=== PATIENT | female | born 1965 | race Caucasian/White ===

== ENCOUNTER 2020-12-29 09:38 | Emergency (ER) | payer BC, SELFPAY ==
--- NOTE | ~2020-12-29 | XR_ITS ---
EXAMINATION: XR CHEST CLINICAL INFORMATION: Chest x-ray, SOB COMPARISON: Chest x-ray 12/29/2020 TECHNIQUE: 2 views of the chest were obtained. FINDINGS: The lungs are hypoexpanded without any acute pneumonic process. There is focal air collection in the left lower lobe retrocardiac area likely hiatal hernia. There is underlying left lower lobe atelectasis. The heart size and pulmonary vascularity is normal. No gross bony abnormality seen. XR/XR chest 2V IMPRESSION: Large retrocardiac hiatal hernia with underlying atelectasis. Rest of the lungs are clear. No major change from 12/29/2020
--- NOTE | ~2020-12-29 | XR_ITS ---
EXAMINATION: CR CHEST CLINICAL INFORMATION: Shortness of breath. COMPARISON: None TECHNIQUE: AP upright portable view of the chest was obtained. FINDINGS: The cardiac mediastinal silhouette is enlarged. There is abnormal multiloculated lucency seen in the retrocardiac left lung base. Findings may be due to a large retrocardiac hiatal hernia with gas-filled viscus structures in the mediastinum. Less likely, findings may represent cavitary lesions in the left lung base. The right lung is fully expanded and clear. No significant effusion or pneumothorax is seen. Bony structures are unremarkable. XR/XR chest 1V IMPRESSION: Multiloculated lucencies are seen in the retrocardiac left lung base, most likely related to a large hernia with gas-filled viscus structures into the mediastinum. A PA and lateral view of the chest would be helpful to further assess these findings and exclude an underlying lung parenchymal process.
[2020-12-29 09:43] VITALS: BP 170/79; PULSE 63; RESP 18; TEMP 35.9; O2SAT 99; BMI 33.6
--- NOTE | 2020-12-29 10:02 | ED_ITS ---
HPI - General Adult General Chief complaint: Weakness Stated complaint: ABNORMAL LABS Time Seen by Provider: 12/29/20 09:52 Source: patient and family Mode of arrival: ambulatory Limitations: no limitations History of Present Illness HPI narrative: 55 y/o female with history of COVID in Jul 2020, anemia requiring transfusion about 3 years ago presents to the ER feeling fatigued and SOB, similar to how she felt when she got the transfusion. She reports she was admitted at [facility] at the time and her hemoglobin was around 5. She was admitted, transfused 2 or 3 units of blood and no cause was identified. She rep ortedly had a negative EGD and colonoscopy. She also reports seeing a kidney specialist at that time for a blood clot in the kidney and ?infarction. She has had no medical problems since then and has not required any blood transfusions since. She denies any abnormal kidney funciton. She reports over the last 4 weeks she has felt off. She is more easily fatigued, generally weak and dyspneic with exertion. She denies chest pain or dizziness. She denies any melena, BRBPR, hematuria or vaginal bleeding. She is not on any aspirin or blood thinners. Her noticed her coloring has been poor lately. They went to Urgent Care this morning who instructed them to come to the ER for further evalu ation. complaint: fatigue, JERNIGAN Onset (ago): week(s) (4) Location: chest Radiation: non-radiation Severity: moderate Pain Consistency: intermittent Relieving factors: rest Exacerbating factors: movement Associated symptoms: malaise and weakness Treatments prior to arrival: none Related Data Allergies Allergy/AdvReac Type Severity Reaction Status Date / Time Unable to Assess Allergy Unverified 12/29/20 09:53 Review of Systems Review of Systems: Constitutional: No Fever, No Chills ENT/Mouth: No sore throat, No Rhinorrhea, No Swallowing Difficulty Eyes: No Eye Pain, No Swelling, No Redness Cardiovascular: No Chest Pain, + SOB, No Orthopnea, No Edema Respiratory: No Cough, No Sputum, No Wheezing, + dyspnea Gastrointestinal: No Nausea, No Vomiting, No Diarrhea, No abdominal Pain, No Hematochezia, No Melena Genitourinary: No Dysuria, No Urinary Frequency, No Hematuria Musculoskeletal: No joint pain, No Myalgias Skin: No Skin Lesions, No rash Neuro: + Weakness, No Numbness, No Dizziness, No Headache Psych: No Anxiety/Panic, No Depression Heme/Lymph: No Bruising, No Lymphadenopathy Endocrine: No Polyuria, No Polydipsia PMFSH Past Medical History Attestation statement: The following information was validated with the patient. Medical History Anemia History of blood clots Surgical History History of hip replacement Social History Social History Advance Directives: No Advance Directives Information Provided: No Patient : No Physical Exam Vital Signs: Vital Signs: Last Vital Signs Temp 96.7 F L 12/29/20 09:43 Pulse 63 12/29/20 09:43 Resp 18 12/29/20 09:43 BP 170/79 H 12/29/20 09:43 Pulse Ox 99 12/29/20 09:43 Body Mass Index 33.6 Const: General: cooperative, healthy appearing, comfortable, no acute distress and well developed Orientation/consciousness: patient oriented x3 HENMT: Head: Yes normal to inspection, Yes normocephalic and Yes atraumatic Ears: hearing grossly normal bilaterally General nose exam: Normal external nose present Face and sinus: Yes normal facial exam Mouth: Normal oral and palatal mucosa present Teeth and gingiva: dentition normal Throat: Yes posterior oropharynx normal Eyes: Periorbital: periorbital findings normal Eyelids: Yes eyelids normal Sclerae: scleral abnormal (bilateral pallor) EOM: EOMs intact bilaterally Neck: Neck: Yes normal visual inspection and Yes no lymphadenopathy Chest: Chest palpation & inspection: normal inspection of the chest Resp: Effort & Inspection: normal respiratory effort and able to speak in complete sentences Auscultation: clear to auscultation bilaterally Cardio: Rate: regular rate Rhythm: regular rhythm Heart sounds: S1 normal heart sound present and S2 normal heart sound present GI: Inspection: Yes normal to inspection Palpation (GI): Soft to palpation Auscultation: normal bowel sounds Skin: General skin exam: no rashes or lesions noted and pallor Neuro: General: patient oriented x3, gait normal, tone normal and moves all extremities Extrem: General: Yes normal to inspection Psych: Appearance: grossly normal and well kempt Mental Status: mental status grossly normal Speech and movement: Normal speech and movement present Course Course Course Narrative: 55 y/o female with history of anemia requiring transfusion in the past who presents with generalized weakness, fatigue and JERNIGAN x4 weeks. Denies blood loss. No identifiable cause on previous anemic admission at [facility] ate a few years ago. Will try to get records. Will get CBC, retic count, LFTs to r/o hemolysis. Type and screen ordered. May require admission for symptomatic anemia. Reevaluation(s) Reevaluation #1: H/H 10.8/36. CXR with ?hiatal hernia. Will get 2 view. Can explain some JERNIGAN/SOB complaints but not fatigue. Lab workup is unremarkable. Reevaluation #2: 2 view CXR showing large hiatal hernia. Patient is advised on results and will follow up with her provider. She is no respiratory distress and is not hypoxic. She is not anemic to the point of transfusion. Her fatigue has been since her COVID diagnosis in July. 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 She has an appointment with her new PCP this March and will follow up with them. She is stable for discharge home with outpatient follow up. Advised on worrisome symptoms to prompt urgent reevaluation. Medical Decision Making Lab Data Result diagrams: 12/29/20 10:10 12/29/20 10:11 Labs: Lab Results 12/29/20 12/29/20 12/29/20 Range/Units 10:10 10:10 10:11 WBC 4.9 (4.8-10.8) X10*3/uL RBC 4.33 (4.20-5.50) X10*6/uL Hgb 10.8 L (12.0-16.0) g/dl Hct 36.4 L (37-47) % MCV 84.1 (80-98) fL MCH 24.9 L (27.0-33.0) pg MCHC 29.7 L (31.0-35.0) g/dl RDW 13.8 (11.0-16.0) % Plt Count 272 (160-400) X10*3/uL MPV 10.5 (9.4-12.3) fL Immature Gran % (Auto) 0.2 (0.0-0.4) % Neut % (Auto) 71.4 (45-73) % Lymph % (Auto) 17.7 L (20-40) % Mobile % (Auto) 8.4 (2-11) % Eos % (Auto) 2.1 (0-4) % Baso % (Auto) 0.2 (0-2) % Lymph # (Auto) 0.9 L (1.2-4.9) X10*3/uL Mobile # (Auto) 0.4 (0.1-1.2) X10*3/uL Eos # (Auto) 0.1 (0.0-0.4) X10*3/uL Baso # (Auto) 0.0 (0.0-0.2) X10*3/uL Abs Immat Gran (auto) 0.01 (0.00-0.03) X10*3/uL Absolute Neuts (auto) 3.5 (2.0-8.3) X10*3/uL Absolute Nucleated RBC 0.000 (0.0-0.012) X10*3/uL Nucleated RBC % (auto) 0.0 (0.0-0.2) /100WBC Absolute Retic 0.043 (0.026-0.095) X10*6/uL Percent Retic 1.0 (0.5-1.8) % Immature Retic Fraction 8.1 (3.0-15.9) % Retic Hgb Equivalent 22.8 L (30.0-35.0) pg PT 10.7 L (10.8-13.0) SEC INR 0.9 (0.9-1.1) APTT 38.5 H (24.1-38.0) SEC Hold Blue Top SEE NOTE Sodium (135-145) mmol/L Potassium (3.3-5.1) mmol/L Chloride (96-108) mmol/L Carbon Dioxide (22-29) mmol/L Anion Gap (12-20) BUN (9-16) mg/dL Creatinine (0.5-1.4) mg/dL Estim Creat Clear Calc Estimated GFR Random Glucose (60-115) mg/dL Calcium (8.4-10.2) mg/dL Magnesium (1.6-2.6) mg/dL Total Bilirubin (0.0-1.0) mg/dL Direct Bilirubin (0.0-0.5) mg/dL AST (5-31) U/L ALT (0-31) U/L Alkaline Phosphatase (39-117) U/L Troponin I High Sens < 3.5 (<3.5-17.0) ng/L Total Protein (6.5-8.0) g/dL Albumin (3.5-5.0) g/dL COVID-19 (EROS) (Negative) COVID-19 Clin Com 12/29/20 12/29/20 12/29/20 Range/Units 10:11 10:11 10:24 WBC (4.8-10.8) X10*3/uL RBC (4.20-5.50) X10*6/uL Hgb (12.0-16.0) g/dl Hct (37-47) % MCV (80-98) fL MCH (27.0-33.0) pg MCHC (31.0-35.0) g/dl RDW (11.0-16.0) % Plt Count (160-400) X10*3/uL MPV (9.4-12.3) fL Immature Gran % (Auto) (0.0-0.4) % Neut % (Auto) (45-73) % Lymph % (Auto) (20-40) % Mobile % (Auto) (2-11) % Eos % (Auto) (0-4) % Baso % (Auto) (0-2) % Lymph # (Auto) (1.2-4.9) X10*3/uL Mobile # (Auto) (0.1-1.2) X10*3/uL Eos # (Auto) (0.0-0.4) X10*3/uL Baso # (Auto) (0.0-0.2) X10*3/uL Abs Immat Gran (auto) (0.00-0.03) X10*3/uL Absolute Neuts (auto) (2.0-8.3) X10*3/uL Absolute Nucleated RBC (0.0-0.012) X10*3/uL Nucleated RBC % (auto) (0.0-0.2) /100WBC Absolute Retic Cancelled (0.026-0.095) X10*6/uL Percent Retic Cancelled (0.5-1.8) % Immature Retic Fraction Cancelled (3.0-15.9) % Retic Hgb Equivalent Cancelled (30.0-35.0) pg PT (10.8-13.0) SEC INR (0.9-1.1) APTT (24.1-38.0) SEC Hold Blue Top Sodium 142 (135-145) mmol/L Potassium 4.4 (3.3-5.1) mmol/L Chloride 108 (96-108) mmol/L Carbon Dioxide 27 (22-29) mmol/L Anion Gap 11 L (12-20) BUN 11 (9-16) mg/dL Creatinine 0.83 (0.5-1.4) mg/dL Estim Creat Clear Calc 84.6 Estimated GFR > 60 Random Glucose 92 (60-115) mg/dL Calcium 9.4 (8.4-10.2) mg/dL Magnesium 2.2 (1.6-2.6) mg/dL Total Bilirubin 0.6 (0.0-1.0) mg/dL Direct Bilirubin 0.2 (0.0-0.5) mg/dL AST 19 (5-31) U/L ALT 18 (0-31) U/L Alkaline Phosphatase 88 (39-117) U/L Troponin I High Sens (<3.5-17.0) ng/L Total Protein 6.5 (6.5-8.0) g/dL Albumin 4.0 (3.5-5.0) g/dL COVID-19 (EROS) Negative (Negative) COVID-19 Clin Com See Note ECG Data Attestation: I personally reviewed and interpreted this ECG as follows: Prior ECG tracings: not available for review Interpretation: normal sinus rhythm, HR 60 bpm, normal SD interval, normal QRS, isolated t-wave inversions in lead III and V1, nonspecific. No ST segment elevations or depressions. Discharge Plan Discharge Clinical Impression: Hiatal hernia Fatigue Qualifiers: Fatigue type: unspecified Qualified Code(s): R53.83 - Other fatigue Patient Disposition: Home, Self-Care Instructions: Hiatal Hernia (ED), Fatigue (ED) Additional Instructions: Your lab workup today was largely unremarkable. Your blood counts only showed mild anemia with hemoglobin of 10.8. Your chest x-ray showed a large hiatial hernia. Information provided. Follow up with your doctor. If you have worsening symptoms or develop any new or concerning symptoms come back to the ER for further evaluation. Referrals: Osvaldo Jimenez MD [Physician] - 2 weeks (large hiatal hernia)
--- NOTE | 2020-12-29 10:03 | ECG_ITS ---
Test Reason : CHECK CARDIAC STATUS Blood Pressure : / mmHG Vent. Rate : 060 BPM Atrial Rate : 060 BPM P-R Int : 146 ms QRS Dur : 084 ms QT Int : 408 ms P-R-T Axes : 039 017 014 degrees QTc Int : 408 ms Normal sinus rhythm Cannot rule out Anterior infarct , age undetermined ; could be from body habitus and lead placement Abnormal ECG No previous ECGs available Referred By: Palmira Weir Electronically Signed By:IONA GARCIA
[2020-12-29 10:15] LABS: MANUAL DIFF FLAG NO
[2020-12-29 10:28] LABS: Basophils Percent Auto 0.2 % (0-2); Eosinophils Absolute Auto 0.1 X10*3/uL (0.0-0.4); Eosinophils Percent Auto 2.1 % (0-4); Hematocrit 36.4 % (37-47); Hemoglobin 10.8 g/dl (12.0-16.0); Imm Gran Abs Auto 0.01 X10*3/uL (0.00-0.03); Imm Gran Pct Auto 0.2 % (0.0-0.4); Immature Retic Fraction 8.1 % (3.0-15.9); Lymphocytes Absolute Auto 0.9 X10*3/uL (1.2-4.9); Lymphocytes Percent Auto 17.7 % (20-40); Mean Corpuscular HGB Conc 29.7 g/dl (31.0-35.0); Mean Corpuscular Hemoglobin 24.9 pg (27.0-33.0); Mean Corpuscular Volume 84.1 fL (80-98); Mean Platelet Volume 10.5 fL (9.4-12.3); Monocytes Absolute Auto 0.4 X10*3/uL (0.1-1.2); Monocytes Percent Auto 8.4 % (2-11); Neutrophils Absolute Auto 3.5 X10*3/uL (2.0-8.3); Neutrophils Percent Auto 71.4 % (45-73); Platelet Count 272 X10*3/uL (160-400); Red Blood Count 4.33 X10*6/uL (4.20-5.50); Red Cell Distribution Width 13.8 % (11.0-16.0); Retic HGB Equivalent 22.8 pg (30.0-35.0); Reticulocytes Absolute 0.043 X10*6/uL (0.026-0.095); White Blood Count 4.9 X10*3/uL (4.8-10.8)
[2020-12-29 10:35] LABS: INTERNATIONAL NORM RATIO 0.9 (0.9-1.1); Prothrombin Time 10.7 SEC (10.8-13.0)
[2020-12-29 10:45] LABS: Partial Thromboplastin Time 38.5 SEC (24.1-38.0)
[2020-12-29 10:49] LABS: Alanine Aminotransferase 18 U/L (0-31); Alkaline Phosphatase 88 U/L (39-117); Anion Gap 11 (12-20); Aspartate Amino Transferase 19 U/L (5-31); Bilirubin Direct 0.2 mg/dL (0.0-0.5); Bilirubin Total 0.6 mg/dL (0.0-1.0); Blood Urea Nitrogen 11 mg/dL (9-16); Calcium 9.4 mg/dL (8.4-10.2); Carbon Dioxide 27 mmol/L (22-29); Chloride 108 mmol/L (96-108); Creatinine Clr Calc Pharmacy 84.6; Estimated Glomerular Filt Rate > 60; Glucose Random 92 mg/dL (60-115); Magnesium 2.2 mg/dL (1.6-2.6); Potassium 4.4 mmol/L (3.3-5.1); Sodium 142 mmol/L (135-145); Total Protein 6.5 g/dL (6.5-8.0)
[2020-12-29 10:51] LABS: Troponin-I High Sensitivity < 3.5 ng/L (<3.5-17.0)
[2020-12-29 11:08] LABS: COVID-19 Test Negative (Negative)
[2020-12-29 12:00] VITALS: BP 137/85; PULSE 62; RESP 18
== END 2020-12-29 13:16 | disposition home or self-care (01) ==
PROVIDERS: Physician Assistant; Emergency Provider Emergency Medicine Emergency Medical Services
DX: K44.9 Diaphragmatic hernia without obstruction or gangrene (principal); R53.83 Other fatigue; R79.89 Other specified abnormal findings of blood chemistry; Z20.822 Contact with and (suspected) exposure to COVID-19; Z86.16 Personal history of COVID-19
CPT/HCPCS: 36415; 71045; 71046; 80048; 80076; 83735; 84484; 85025; 85045; 85610; 85730; 87635; 93005; 99283